=== PATIENT | female | born 1985 | race African-American/Black ===

== ENCOUNTER 2021-04-30 11:54 | Emergency (ER) | payer MEDICAID, OTHER ==
[~2021-04-30] VITALS: Ht 160 cm; Wt 102.0 kg
[2021-04-30 17:45] VITALS: BP 121/73
== END 2021-04-30 13:00 | disposition left against medical advice (07) ==
LOC: ER 11:54
DX: M25.531 Pain in right wrist (principal); Z53.21 Procedure and treatment not carried out due to patient leaving prior to being seen by health care provider